=== PATIENT | male | born 1945 | race Caucasian/White ===

== ENCOUNTER 2016-12-22 11:39 | Emergency (ER) | payer MEDICARE, OTHER ==
[~2016-12-22 11:39] MED LIST: AZELASTINE205.5 MCG/ INH; BACLOFEN 10MG T10 MG PO; BISOPROLOL FUMAR5 MG PO; CEFDINIR300 MG PO; DIFLUCAN 100MG100 MG PO; DULERA 200 MCG8.8 GM INH; FLUNISOLIDE25 ML; HUMIRA10 MG/0.2 IJ; LEXAPRO 10MG TA10 MG PO; LORATADINE10 MG PO; MEDROL 4MG DOSEP4 MG PO; NITROSTAT0.4 MG SL; NORVASC5 MG PO; PANCREAZE 21,01 EACH PO; PREDNISONE 10MG10 MG PO; PRILOSEC20 MG PO; PROAIR HFA8.5 GM INH; REFRESH TEARS15 ML OU; SINGULAIR10 MG PO; SPIRIVA 185 PUFFS/IN INH; THEOPHYLLINE 3300 MG PO; XOLAIR150 MG SC; ZOCOR40 MG PO
== END 2016-12-22 12:57 | disposition home or self-care (01) ==
LOC: FER 11:39
DX: S40.811A Abrasion of right upper arm, initial encounter (principal); I48.91 Unspecified atrial fibrillation; I10 Essential (primary) hypertension; J45.909 Unspecified asthma, uncomplicated; J44.9 Chronic obstructive pulmonary disease, unspecified; Z87.19 Personal history of other diseases of the digestive system; Z88.0 Allergy status to penicillin; Z99.81 Dependence on supplemental oxygen; Z79.01 Long term (current) use of anticoagulants; Z79.51 Long term (current) use of inhaled steroids; Z79.52 Long term (current) use of systemic steroids; Z79.899 Other long term (current) drug therapy; W54.8XXA Other contact with dog, initial encounter
CPT/HCPCS: 90471; 90715